=== PATIENT | female | born 1970 | race Caucasian/White ===

== ENCOUNTER 2020-03-12 16:51 | Emergency (ER) | payer SELFPAY ==
[2020-03-12 17:34] LABS: Bilirubin Small (Negative); Blood, Urine Trace (Negative); Glucose, Urine (Dipstick) 100 mg/dL (Negative); Ketone, Urine Trace mg/dL (Negative); Leukocyte Large (Negative); Nitrite Positive (Negative); Protein, Urine (Dipstick) 30 mg/dL (Neg-Trace); Specific Gravity, Urine 1.025 (1.005-1.030); pH, Urine 5.5 (5.0-9.0)
[2020-03-12 17:36] LABS: Pregnancy Test - Urine (BHCG) Negative (Negative); Pregu Control Background? CLEAR/WHITE (CLR/WHITE); Pregu Control Bar Appear? YES (CONTROL BAR); Specific Gravity 1.025 (1.002-1.036)
[2020-03-12 17:37] LABS: Clarity Slightly Cloudy (Clear)
[2020-03-12 17:43] LABS: Bacteria/HPF 3+ HPF (None Seen)
[2020-03-12] MEDS ORDERED: Lidocaine 1% 20 ML MDV ONE (17:45)
[2020-03-12] MEDS ORDERED: cefTRIAXone\\ROCEPHIN 1 GM VIAL ONE (17:45)
== END 2020-03-12 18:06 | disposition home or self-care (01) ==
LOC: MADERS 16:51
DX: N30.00 Acute cystitis without hematuria (principal); F17.210 Nicotine dependence, cigarettes, uncomplicated
CPT/HCPCS: 81003; 81015; 81025; 96372; 99283; J0696; J2001